=== PATIENT | female | born 1975 | race Caucasian/White ===

== ENCOUNTER → 2022-09-19 | Outpatient (CLI) | payer OTHER, SELFPAY ==
[2022-09-19 12:22] LABS: Absolute Lymphocyte Count 1.02 X10^3/uL (0.83-4.51); Absolute Neutrophil Count 5.1 X10^3/uL (2.0-7.7); Basophil# 0.07 X10^3/uL; Eosinophil# 0.14 X10^3/uL; Hematocrit 39.7 % (37-47); Hemoglobin 13.5 g/dL (12.0-15.0); Lymphocyte # 1.02 X10^3/ul (0.83-4.51); Lymphocyte % 14.9 % (19-41); Mean Corpuscular Hgb 30.5 pg (27.0-32.0); Mean Corpuscular Volume 89.8 fL (81-99); Mean Platelet Vol. 10.8 fl (6.2-12.0); Monocyte% 7.3 % (0-10); NRBC Flagged by Analyzer 0 % (0-5); Neutrophil % 74.5 % (47-70); Platelet Count 263 K/mm3 (150-450); RBC Distribution Width CV 12.5 % (11.6-14.6); RBC Distribution Width SD 41.4 fl (35.1-43.9); Red Blood Count 4.42 M/mm3 (4.2-5.4); White Blood Count 6.9 K/mm3 (4.4-11.0)
[2022-09-19 12:50] LABS: Vitamin D,25 Hydroxy 40.2 ng/mL
[2022-09-20 13:07] LABS: ANTINUCLEAR ANTIBODIES DIRECT Negative (Negative)
== END | disposition home or self-care (01) ==
PROVIDERS: PCP Internal Medicine; Referring Provider Internal Medicine; Visit Provider Internal Medicine
DX: I73.00 Raynaud's syndrome without gangrene (principal); E55.9 Vitamin D deficiency, unspecified
CPT/HCPCS: 36415; 82306; 85025; 86038; 86225; 86235

== ENCOUNTER → 2023-07-04 | Outpatient (CLI) | payer OTHER, SELFPAY ==
--- NOTE | 2023-07-04 09:13 | BI_ITS ---
MAMMOGRAPHY - BILATERAL SCREENING REASON FOR EXAM: Female, 48 years old. Routine annual screening examination. PERTINENT HISTORY: Non-contributory. TECHNIQUE: Digital bilateral breast daniel (3D mammographic acquisition) in the CC and MLO projections. 2-D mediolateral oblique (MLO) and craniocaudad (CC) views of both breasts were obtained. CAD: Full Field Digital Mammography with Computer Added Detection was performed. COMPARISON: Comparison is made with prior abdomen examination December 18, 2021. FINDINGS: Breast Composition: The breasts are extremely dense, which lowers the sensitivity of mammography. There is a 7.2 mm x 10.4 mm spiculated density in the right axilla as seen on the mediolateral oblique view. Correlation with ultrasound is recommended for further evaluation. No other significant abnormalities are identified. BI/SCRN MAMM (CAD)W/DANIEL BILAT IMPRESSION: 7.2 mm x 10.4 mm spiculated density in the right axilla as seen on the mediolateral oblique view. Correlation with ultrasound is recommended for further evaluation. ASSESSMENT CATEGORY: BIRADS Category 0: Incomplete. Need additional imaging evaluation. A letter regarding these results will be sent to the patient by the facility within 30 days. Approximately 10% of breast cancers are not detected by mammography. A normal mammogram should not delay biopsy of a clinically suspicious abnormality. [id number] Electronically Signed: Henok Sinha MD at 10:06 EST ,
--- OUTSIDE RECORDS SUMMARY | 2023-07-04 09:38 | XMS RPT_ITS | CCD ---
Author Name Unknown Address [address] [place] [address] Organization [facility] Care Team Providers Care Cocktail Server Name Role Phone Bernie Alcantara CNP Primary Care Provider BERNIE ALCANTARA Primary Care Unavailable GARCIA OWUSU Attending Unavailable BERNIE ALCANTARA Primary Care Unavailable AFSHAN FOX Attending Unavailable BERNIE ALCANTARA Primary Care Unavailable GALI CALHOUN Attending Unavailable BERNIE ALCANTARA Primary Care Unavailable Allergies Allergy Classification Reported Allergen(s) Allergy Type Date of Onset Reaction(s) Facility (10 sources) Penicillins; Translations: [PENICILLINS] Propensity to adverse reactions 01-29-2005 [facility] Work Phone: (10 sources) Seasonal allergy; Translations: [SEASONAL ALLERGIES] Propensity to adverse reactions 07-19-2009 [facility] Work Phone: Medications Current Medications Medication Drug Class(es) Dates Sig (Normalized) Sig (Original) nitrofurantoin, macrocrystals 25 mg / nitrofurantoin, monohydrate 75 mg oral capsule (1 source) Nitrofuran Antibacterial Start: 05-25-2022 End: 05-30-2022 take 1 capsule by mouth twice daily nitrofurantoin monohydrate and macrocrystal (MACROBID) 100 mg capsule Take 1 capsule by mouth twice daily for 5 days. 10 capsule 0 05/25/2022 05/30/2022 Active Completed/Discontinued Medications Medication Drug Class(es) Dates Sig (Normalized) Sig (Original) Desogestrel / Ethinyl Estradiol (1 source) Progestin, Estrogen Start: 08-07-2022 take 1 tablet by mouth once daily Desogestrel-Ethin yl Estradiol (KARIVA, 28,) 0.15-0.02 mgx21 /0.01 mg x 5 per tablet Take 1 tablet by mouth once daily. 28 tablet 12 08/07/2022 Active Problems Active Problems Problem Classification Problem Date Documented Da te Episodic/Chronic Genitourinary symptoms and ill-defined conditions (1 source) Dysuria; Translations: [Dysuria] Episodic Menopausal disorders (1 source) Perimenopausal state; Translations: [Menopausal and female climacteric states] Chronic Other female genital disorders (1 source) Vaginal irritation; Translations: [Other specified noninflammatory disorders of vagina] Episodic Other screening for suspected conditions (not mental disorders or infectious disease) (2 sources) Patient encounter status; Translations: [Encounter for screening mammogram for malignant neoplasm of breast] Episodic Residual codes; unclassified (1 source) Treatment not available; Translations: [Procedure and treatment not carried out for other reasons] Episodic Urinary tract infections (1 source) Acute cystitis; Translations: [Acute cystitis without hematuria] Episodic Past or Other Problems Problem Classification Problem Date Documented Da te Episodic/Chronic Other injuries and conditions due to external causes (9 sources) Angioedema; Translations: [Angioneurotic edema, initial encounter] Onset: 01-30-2005 01-30-2005 Episodic Results Test Name Value Interpretation Reference Range Facil ity Vital Signs Date Time Vital Sign Value Performing Clinician Ella rodriguez 07-18-2022 09:27-0500 Body weight 63.5 kg Garcia Owusu MD Work Phone: [facility] 07-18-2022 09:27-0500 Diastolic blood pressure 74 mm[Hg] Garcia Owusu MD Work Phone: [facility] 07-18-2022 09:27-0500 Systolic blood pressure 122 mm[Hg] Garcia Owusu MD Work Phone: [facility] 06-04-2022 09:37-0500 Body weight 64.86 kg Afshan Fox TOOLROOM CHECKER.JUSTUS Work Phone: [facility] 06-04-2022 09:37-0500 Diastolic blood pressure 80 mm[Hg] Afshan Fox TOOLROOM CHECKER.DRIVER TRAINEE Work Phone: [facility] 06-04-2022 09:37-0500 Heart rate 70 /min Afshan [place] TOOLROOM CHECKER.DRIVER TRAINEE Work Phone: [facility] 06-04-2022 09:37-0500 Respiratory rate 14 /min Afshan [place] TOOLROOM CHECKER.DRIVER TRAINEE Work Phone: [facility] 06-04-2022 09:37-0500 SaO2% (BldA) [Mass fraction] 98 % Afshan Dominique TOOLROOM CHECKER.DRIVER TRAINEE Work Phone: [facility] 06-04-2022 09:37-0500 Systolic blood pressure 104 mm[Hg] Afshan [place] TOOLROOM CHECKER.DRIVER TRAINEE Work Phone: [facility] Encounters Encounter Date Encounter Type Care Provider Facility Start: 03-14-2023 End: 03-14-2023 [facility] Facility:[facility] Start: 08-06-2022 Telephone encounter Garcia Owusu MD Work Phone: OB/Gynecology Procedures Date Procedure Procedure Detail Performing Clinician Start: 06-04-2022 Urnls dip stick/tabl et rgnt auto w/o microscopy Afshan Dominique TOOLROOM CHECKER.DRIVER TRAINEE Work Phone: Start: 02-22-2022 INFLUENZA VACCINE QUADRIVALENT 6 MO - 64 YRS IM Grant Kerr MD Work Phone: Start: 12-18-2021 SULEMAN SCREENING W DANEIL Re christine Owusu MD Work Phone: Start: 12-18-2021 Mammography Screen Wst r Plan of Treatment Date Care Activity Detail Author Start: 12-06-2031 Urine microalbumin profile DTAP,TDAP,TD (2 - Td or Tdap) [facility] Start: 12-05-2026 HPV TESTING HPV TESTING [facility] Start: 12-05-2026 PAP TESTING PAP TESTING [facility] Start: 12-18-2022 Mammography MAMMOGRAM [facility] Start: 05-13-2022 DEPRESSION ASSESSMENT DEPRESSION ASSESSMENT [facility] Start: 01-11-2022 Influenza vaccination INFLUENZA (#1) [facility] Start: 01-01-2022 DEPRESSION ASSESSMENT DEPRESSION ASSESSMENT [facility] Start: 2019 COLOGUARD (FIT-DNA) COLOGUARD (FIT-DNA) [facility] Start: 2019 Colonoscopy COLONOSCOPY [facility] Start: 2019 COLORECTAL CANCER SCREENING COLORECTAL CANCER SCREENING [facility] Start: [address] COLONOGRAPHY [facility] Start: 2019 DIABETES SCREEN DIABETES SCREEN [facility] Start: 2019 FECAL OCCULT BLOOD FECAL OCCULT BLOOD [facility] Start: 2019 LIPID SCREEN LIPID SCREEN [facility] Start: 2019 SIGMOIDOSCOPY SIGMOIDOSCOPY [facility] Start: 02-25-1992 HEPATITIS C SCREENING HEPATITIS C SCREENING [facility] Start: 1986 Adult depression screening assessment DEPRESSION SCREENING [facility] Start: 1974 COVID-19 VACCINE (#1) COVID-19 VACCINE (#1) [facility] Start: 1974 HEPATITIS B (1 of 3 - 3-dose series) HEPATITIS B (1 of 3 - 3-dose series) [facility] Bacteria identified in Urine by Culture URINE CULTURE Microbiology Routine Dysuria 06/04/2022 10:[address] [facility] Work Phone: BACTERIAL VAGINOSIS AMPLIFICATION BACTERIAL VAGINOSIS AMPLIFICATION Lab Routine Vaginal irritation 06/04/2022 10:[address] [facility] Work Phone: ALONSO / TRICHOMONA S AMPLIFICATION ALONSO / TRICHOMONAS AMPLIFICATION Microbiology Routine Vaginal irritation 06/04/2022 10:[address] [facility] Work Phone: [facility] Immunizations Immunization Date Immunization Notes Care Provider Mikaela solis 02-22-2022 influenza, injectabl e, quadrivalent, contains preservative Nurse Shaw [facility] 12-05-2021 tetanus toxoid, redu wilda diphtheria toxoid, and acellular pertussis vaccine, adsorbed Screen [facility] 03-11-2020 influenza, injectabl e, quadrivalent, contains preservative Screen [facility] Work Phone: 03-10-2019 influenza, injectabl e, quadrivalent, preservative free Screen [facility] 02-27-2018 influenza, injectabl e, quadrivalent, contains preservative Screen [facility] 03-01-2016 influenza, injectabl e, quadrivalent, contains preservative Screen [facility] Work Phone: 02-21-2015 influenza, injectabl e, quadrivalent, contains preservative Screen [facility] Work Phone: 03-05-2014 influenza, live, intranasal, quadrivalent Screen [facility] Work Phone: 03-06-2010 influenza virus vacc ine, unspecified formulation Screen [facility] Work Phone: Payers Date Payer Category Payer Unknown [id number] 2017 Unknown [id number] Social History Date Type Detail Facility Start: 06-18-2011 End: 07-18-2022 Tobacco smoking status NHIS Never smoked tobacco [facility] Start: 06-18-2011 End: 07-18-2022 Tobacco use and exposure Smokeless tobacco non-user [facility] Start: 12-05-2021 End: 07-18-2022 Alcohol intake Ex-drinker (finding) [facility] Start: 1975 Sex Assigned At Female [facility] Start: 11-25-2021 End: 02-07-2022 Exposure to SARS-CoV-2 (event) Not sure [facility] Start: 02-21-2022 History SDOH Alcohol Frequency 1 [facility] Start: 02-21-2022 History SDOH Alcohol Std Drinks 0 [facility] Start: 02-21-2022 History SDOH Social Connections Phone 5 [facility] Start: 02-21-2022 History SDOH Social Connections [employer] 3 [facility] Start: 02-21-2022 History SDOH Social Connections Meetings 2 [facility] Start: 02-21-2022 History SDOH Physica l Activity DPW 6 [facility] Clinical Notes 01-17-2010 to 03-14-2023 Telephone Encounter - Jennifer Fields AREA DEVELOPMENT CONSULTANT - 08/08/2022 9:30 AM EDTTelephone Encounter - Daiana Fernandez AREA DEVELOPMENT CONSULTANT - 08/07/2022 11:46 AM EDTTelephone Encounter - aBrb Monie RN - 08/06/2022 9:28 AM EDT Note Date & Type Note Facility 03-14-2023 Note HNO ID: [id number] Author: Reema Lyons APRN.DRIVER TRAINEE Service: ? Author Type: Nurse Practitioner Type: Progress Notes Filed: 03/14/2023 2:10 PM Note Text: CC: Patient presents with: Sinus Problem: Pressure in ears and Eyes, nasal congestion x1 week HPI: Vandana Hyman is a 48 year old female who presents to the office with complaint of head congestion, sinus symptoms, and ear symptoms for a week. Symptoms are worsening Associated symptoms includes nasal congestion and facial pain/pressure. Denies fever, nausea, vomiting , and diarrhea. Treatments tried include nothing so far. with no relief of symptoms. Sick contacts: unknown. History of asthma, frequent episodes of bronchitis, chronic bronchitis, bronchiectasis or COPD: No Smoker: No Seasonal/environmental allergies: No The ROS is otherwise negative. The patient's pmh, medications, allergies, and past visits are reviewed. PHYSICAL EXAM: LMP 07/03/2022 (Exact Date) General appearance: alert, cooperative, pleasant, in no acute distress Head: Normocephalic Eyes: EOM's intact, conjunctiva pink and moist, no icterus, sclera white, non-injected Ears: Right ear: External ear/canal- Normal, TM - clear with good landmarks. Left ear: External ear/canal- Normal, TM - clear with good landmarks Oropharynx:moist without lesions, No erythema, exudates or tonsillar hypertrophy. Heart: Negative. RRR without obvious murmur, gallop, or rubs. No ectopy. Lungs: clear to auscultation, without rales or wheeze, good air exchange PAST MEDICAL HISTORY Diagnosis Date Urinary tract infection, site not specified Recurrent UTI's PAST SURGICAL HISTORY Procedure Laterality Date DELIVERY ONLY PAST SURGICAL HISTORY OF WISDOM TEETH ALLERGIES Penicillins and Seasonal Allergies MEDICATIONS Desogestrel-Ethinyl Estradiol (KARIVA, 28,) 0.15-0.02 mgx21 /0.01 mg x 5 per tablet Take 1 tablet by mouth once daily. MULTIVITAMIN ORAL Take by mouth once daily. FAMILY HISTORY Problem Relation Age of Onset Arthritis Mother Asthma Mother Cancer Mother SKIN CACNER Thyroid Mother Stroke Mother Heart Mother triple bypass Heart Father Cancer Brother SKIN CANCER Hypertension Brother Diabetes Maternal Grandfather Stroke Maternal Grandfather Hypertension Paternal Grandmother Social History Tobacco Use Smoking status: Never Smokeless tobacco: Never Vaping Use Vaping Use: Never used Substance Use Topics Alcohol use: Not Currently Drug use: No ASSESSMENT/PLAN: 1. Rhinosinusitis - ICD9: 473.9, ICD10: J32.9 - DOXYCYCLINE HYCLATE 100 MG TABLET Prescription instructions reviewed with patient as applicable. Potential red flag symptoms discussed with the patient. Reviewed appropriate action plan to take if red flag symptoms occur. Patient agreeable to treatment plan. Reema Lyons APRN.[facility] 08-08-2022 Miscellaneous Notes Patient scheduled Message left asking pt to contact the office to review below message and further advise. Daiana Fernandez LPN Rx sent. Schedule f/u visit, can be 3-4 months to discuss how she is doing w/ these. Garcia Owusu MD Patient was seen in the office on 07/18/22 for perimenopausal symptoms. Patient states her appointment got off track and that she forgot to get a prescription for an OCP. Patient is wanting to be starting on a control pill. Patient is aware provider is out of the office and is willing to wait until provider returns to have addressed. Pharmacy is up to date. Will need to call patient back. Barb Lomax RN documented in this encounter [facility] 07-18-2022 Note HNO ID: [id number] Author: Garcia Owusu MD Service: ? Author Type: Physician Type: Progress Notes Filed: 07/18/2022 12:56 PM Note Text: Vandana Hyman is a 47 year old female who presents for problem visit for c/o vaginal dryness, brain fog. Menses are a little heavier. .Decresed libido. Gained wt. Concerned about perimenopause and what to expect. Tried ocps short term in the past and felt very newberry/angry on it. Gets some dull aches first half of her menstrual cycle. Menses are regular and light during the day and then flows out heavier when sits down on toilet. Menses in the past was 6-7 days and now 3 days. Hasn't missed any. Sometimes mood around menses but not each cycle. Eats health, exercises regularly. Takes 2 melatonin before bed, sometimes sleeps better than others. OB History T1 L1 SAB0 IAB0 Ectopic0 Multiple0 Live Births1 [employer] History LMP: 05/13/2022 (Exact Date), Having periods Age at Menarche: Age at First : Age at Menopause: [employer] History Comments: Sexual Activity: Yes; Male Contraception: No contraception data on record PAST MEDICAL HISTORY Diagnosis Date Urinary tract infection, site not specified Recurrent UTI's PAST SURGICAL HISTORY Procedure Laterality Date DELIVERY ONLY PAST SURGICAL HISTORY OF WISDOM TEETH FAMILY HISTORY Problem Relation Age of Onset Arthritis Mother Asthma Mother Cancer Mother SKIN CACNER Thyroid Mother Stroke Mother Heart Mother triple bypass Heart Father Cancer Brother SKIN CANCER Hypertension Brother Diabetes Maternal Grandfather Stroke Maternal Grandfather Hypertension Paternal Grandmother Social History Tobacco Use Smoking status: Never Smokeless tobacco: Never Vaping Use Vaping Use: Never used Substance Use Topics Alcohol use: Not Currently Drug use: No Current Outpatient Medications Medication Sig MULTIVITAMIN ORAL Take by mouth once daily. No current facility-administered medications for this visit. Allergies As of Date: 07/18/2022 Allergen Noted Reaction PENICILLINS 01/29/2005 SEASONAL ALLERGIES 07/19/2009 Fully Assessed 07/18/2022 REVIEW OF SYSTEMS Abdomen: No bloating, early satiety, indigestion, or increased flatulence. No abdominal pain, nausea, vomiting, diarrhea, or constipation. Bladder: No dysuria, gross hematuria, urinary frequency, urinary urgency, or incontinence. Allergies and current medication updated:Yes EXAM: LMP 05/13/2022 GENERAL: pleasant, female in no apparent distress ASSESSMENT AND PLAN: perimenopause Discussion today about perimenopause, expectations around perimenopause. No significant menstrual disruptions. Some vaginal dryness and irritation. We discussed options for that. [id number] suggestions given. Discussed with her option of continuous OCPs, vaginal ring or patch. However, side effects of that may be worse than the symptoms she is currently experiencing. Encouraged her to continue with healthy lifestyle. Reviewed her cholesterol and thyroid labs that she brought with her today. These are scanned in. Discussed with her normal changes in sexual function as well. Patient had questions about whether she has any endometriosis or fibroids. Questions were answered to the best of my ability. Does occasionally have some discomfort. If this continues or worsens can consider pelvic ultrasound I discussed with her that clinically there is a minimal chance of finding anything that we would need to intervene with at this point since she is not having severe pain or problems with her periods. Contact office if hot flashes or menstrual irregularities or other concerns worsen. Patient is comfortable with this plan. I spent a total of 23 minutes on the date of the service which included preparing to see the patient, completing clinical documentation, counseling and educating the patient/family/caregiver, and independently interpreting results (not separately reported) Medical Decision Making: Medical Decision Making Level: 1 - N/A Garcia Owusu MD [facility] 07-18-2022 History of Presen t illness Narrative Vandana Hyman is a 47 year old female who presents for problem visit for c/o vaginal dryness, brain fog. Menses are a little heavier. .Decresed libido. Gained wt. Concerned about perimenopause and what to expect. Tried ocps short term in the past and felt very newberry/angry on it. Gets some dull aches first half of her menstrual cycle. Menses are regular and light during the day and then flows out heavier when sits down on toilet. Menses in the past was 6-7 days and now 3 days. Hasn't missed any. Sometimes mood around menses but not each cycle. Eats health, exercises regularly. Takes 2 melatonin before bed, sometimes sleeps better than others. OB History T1 L1 SAB0 IAB0 Ectopic0 Multiple0 Live Births1 [employer] History LMP: 05/13/2022 (Exact Date), Having periods Age at Menarche: Age at First : Age at Menopause: [employer] History Comments: Sexual Activity: Yes; Male Contraception: No contraception data on record PAST MEDICAL HISTORY Diagnosis Date Urinary tract infection, site not specified Recurrent UTI's PAST SURGICAL HISTORY Procedure Laterality Date DELIVERY ONLY PAST SURGICAL HISTORY OF WISDOM TEETH FAMILY HISTORY Problem Relation Age of Onset Arthritis Mother Asthma Mother Cancer Mother SKIN CACNER Thyroid Mother Stroke Mother Heart Mother triple bypass Heart Father Cancer Brother SKIN CANCER Hypertension Brother Diabetes Maternal Grandfather Stroke Maternal Grandfather Hypertension Paternal Grandmother Social History Tobacco Use Smoking status: Never Smokeless tobacco: Never Vaping Use Vaping Use: Never used Substance Use Topics Alcohol use: Not Currently Drug use: No Current Outpatient Medications Medication Sig MULTIVITAMIN ORAL Take by mouth once daily. No current facility-administered medications for this visit. Allergies As of Date: 07/18/2022 Allergen Noted Reaction PENICILLINS 01/29/2005 SEASONAL ALLERGIES 07/19/2009 Fully Assessed 07/18/2022 REVIEW OF SYSTEMS Abdomen: No bloating, early satiety, indigestion, or increased flatulence. No abdominal pain, nausea, vomiting, diarrhea, or constipation. Bladder: No dysuria, gross hematuria, urinary frequency, urinary urgency, or incontinence. Allergies and current medication updated:Yes EXAM: LMP 05/13/2022 GENERAL: pleasant, female in no apparent distress ASSESSMENT AND PLAN: perimenopause Discussion today about perimenopause, expectations around perimenopause. No significant menstrual disruptions. Some vaginal dryness and irritation. We discussed options for that. Uyhp-pno-[id number] suggestions given. Discussed with her option of continuous OCPs, vaginal ring or patch. However, side effects of that may be worse than the symptoms she is currently experiencing. Encouraged her to continue with healthy lifestyle. Reviewed her cholesterol and thyroid labs that she brought with her today. These are scanned in. Discussed with her normal changes in sexual function as well. Patient had questions about whether she has any endometriosis or fibroids. Questions were answered to the best of my ability. Does occasionally have some discomfort. If this continues or worsens can consider pelvic ultrasound I discussed with her that clinically there is a minimal chance of finding anything that we would need to intervene with at this point since she is not having severe pain or problems with her periods. Contact office if hot flashes or menstrual irregularities or other concerns worsen. Patient is comfortable with this plan. I spent a total of 23 minutes on the date of the service which included preparing to see the patient, completing clinical documentation, counseling and educating the patient/family/caregiver, and independently interpreting results (not separately reported) Medical Decision Making: Medical Decision Making Level: 1 - N/A Garcia Owusu MD documented in this encounter [facility] 07-03-2022 Miscellaneous Notes schedule in person or virtual to discuss symptoms. Thanks. Garcia Owusu MD documented in this encounter [facility] 06-04-2022 Note HNO ID: [id number] Author: Afshan Fox APRN.DRIVER TRAINEE Service: ? Author Type: Nurse Practitioner Type: Progress Notes Filed: 06/04/2022 10:23 AM Note Text: Telex Operator offered: Patient declines. Vandana Hyman is a 47 year old female who presents for vaginal pruritis and burning for 1 week(s). Vaginal discharge: none. Itching: YES Dyspareunia: YES Fever/chills: No Abdominal pain: No Bladder: frequency, urgency Bowel: No blood in stool, pain with BM, tarry stool, persistent diarrhea or constipation Any new sexual partners or concern for STD exposure: No Are you currently taking any medications to treat vaginitis: Yes, 1 day Monistat Do you use feminine sprays, douches or deodorants: No Past medical, surgical, social history, medications and allergies reviewed and updated. OBJECTIVE: BP 104/80 Pulse 70 Resp 14 Wt 143 lb (64.9kg) SpO2 98% LMP 05/13/2022 GENERAL: Well developed, well nourished in no apparent distress PELVIC: external genitalia normal, normal Bartholin's glands, urethra, [place]'s glands, no vulvar lesions, no cervical lesions, good vaginal support, physiologic discharge present, normal appearing perineal body and perianal region ASSESSMENT/PLAN: 1. Vaginal irritation - ICD9: 623.9, ICD10: N89.8 (primary diagnosis) - ALONSO / TRICHOMONAS AMPLIFICATION - BACTERIAL VAGINOSIS AMPLIFICATION 2. Dysuria - ICD9: 788.1, ICD10: R30.0 acute - UA negative - Send urine for culture - Patient education for prevention given - URINE CULTURE Afshan Fox APRN.CNP Medical Decision Making: Problems: Moderate: New problem with uncertain prognosis Data: Unique test(s) ordered: 3+ Risk: Low: Low risk from testing/treatment Medical Decision Making Level: 4 - Moderate [facility] 06-04-2022 History of Presen t illness Narrative Telex Operator offered: Patient declines. Vandana Hyman is a 47 year old female who presents for vaginal pruritis and burning for 1 week(s). Vaginal discharge: none. Itching: YES Dyspareunia: YES Fever/chills: No Abdominal pain: No Bladder: frequency, urgency Bowel: No blood in stool, pain with BM, tarry stool, persistent diarrhea or constipation Any new sexual partners or concern for STD exposure: No Are you currently taking any medications to treat vaginitis: Yes, 1 day Monistat Do you use feminine sprays, douches or deodorants: No Past medical, surgical, social history, medications and allergies reviewed and updated. OBJECTIVE: BP 104/80 Pulse 70 Resp 14 Wt 143 lb (64.9kg) SpO2 98% LMP 05/13/2022 GENERAL: Well developed, well nourished in no apparent distress PELVIC: external genitalia normal, normal [place]tholin's glands, urethra, [place]'s glands, no vulvar lesions, no cervical lesions, good vaginal support, physiologic discharge present, normal appearing perineal body and perianal region ASSESSMENT/PLAN: 1. Vaginal irritation - ICD9: 623.9, ICD10: N89.8 (primary diagnosis) - ALONSO / TRICHOMONAS AMPLIFICATION - BACTERIAL VAGINOSIS AMPLIFICATION 2. Dysuria - ICD9: 788.1, ICD10: R30.0 acute - UA negative - Send urine for culture - Patient education for prevention given - URINE CULTURE Afshan Fox APRN.CNP Medical Decision Making: Problems: Moderate: New problem with uncertain prognosis Data: Unique test(s) ordered: 3+ Risk: Low: Low risk from testing/treatment Medical Decision Making Level: 4 - Moderate documented in this encounter [facility] 05-25-2022 Note HNO ID: [id number] Author: Gali Calhoun APRN.DRIVER TRAINEE Service: ? Author Type: Nurse Practitioner Type: Progress Notes Filed: 05/25/2022 9:19 AM Note Text: Telemedicine Visit - Distance Health Virtual Visit Note Patient seen on [employer] platform. Location of patient: [place] History of Present Illness Vandana Hyman is a 47 year old female with a history of UTI symptoms for 4 days. Urinary symptoms ROS: Positive for Dysuria, Increase in frequency of urination, and Urgency, Negative for Fevers, Vomiting, Diarrhea, Abdominal pain , Back/Flank pain, and Blood in urine; pt thinks she may have seen pink in urine stream yesterday. Denies any bright red blood visible in urine. Chance of : No Any self-treatment attempted: Yes Number of previous UTI's in last 6 months:0 Number of previous UTI's in last 12 months: 0 Aggravating Factors: Voiding Alleviating Factors include AZO and Increasing fluids with minimal relief in symptoms. Pt took AZO OTC urine test and was positive for leukocytes and nitrites. PAST MEDICAL HISTORY Diagnosis Date Urinary tract infection, site not specified Recurrent UTI's PAST SURGICAL HISTORY Procedure Laterality Date DELIVERY ONLY PAST SURGICAL HISTORY OF WISDOM TEETH FAMILY HISTORY Problem Relation Age of Onset Arthritis Mother Asthma Mother Cancer Mother SKIN CACNER Thyroid Mother Stroke Mother Heart Mother triple bypass Cancer Brother SKIN CANCER Hypertension Brother Diabetes Maternal Grandfather Stroke Maternal Grandfather Hypertension Paternal Grandmother Social History Tobacco Use Smoking status: Never Smokeless tobacco: Never Vaping Use Vaping Use: Never used Substance Use Topics Alcohol use: Not Currently Drug use: No ALLERGIES Allergen Reactions Penicillins Seasonal Allergies Current Outpatient Medications Medication Sig MULTIVITAMIN ORAL Take by mouth. No current facility-administered medications for this visit. Video Exam (Examination performed via Video enabled technology) General Appearance: 47 year old yo female in NAD; not ill or toxic appearing Abdomen: non-tender by self palpation CVA Tenderness: non-tender bilaterally by self palpation ASSESSMENT/PLAN: 1. Acute cystitis without hematuria - ICD9: 595.0, ICD10: N30.00 - Begin empiric treatment with Macrobid as prescribed and discussed - Recommend increased oral intake of clear liquids - Advised on wipe [id number]-cc-tqma and always void after intercourse - Advised to seek immediate medical evaluation if any bright red blood filling toilet bowl, fevers, severe pain - Follow up with PCP (or available in-person care) in 3-5 days if no improvement - Red flags discussed for in person care and follow up - All questions answered Gali Calhoun APRN.CNP If you let us know who your primary care provider is, we will send them a notification of today?s visit through our electronic medical records system. Since not all providers have access to our notifications, we strongly encourage you to share the following record of today?s visit with your primary care provider at your next visit. This will help in providing you the best care. If you do not have an established Primary Care physician and would like to continue care with a [facility] Virtual Primary Care physician, please ask your provider to place a Establish Primary Care order. Use [employer] to manage your care, wherever you are, 03/12, on your mobile device or computer. [employer] connects you to [employer] so you can access all your health information in one place and also schedule and request virtual appointments with primary care providers. [facility] 05-25-2022 Note HNO ID: [id number] Author: Gali Calhoun APRN.CNP Service: ? Author Type: Nurse Practitioner Type: Progress Notes Filed: 05/25/2022 7:37 AM Note Text: This is an Express Care eVisit note for Vandana Laneisit/Questionnaire reviewed The chief complaint for the visit - Patient presents with: Urinary Problem Recommendations/Treatment plan - See My Chart Message to patient Gali Calhoun APRN.CNP Total time spent on e-Visit: 3 minutes [facility] 05-25-2022 Instructions Gali Calhoun APRN.CNP - 05/25/2022 8:54 AM EST Images from the original note were not included. Urinary Problem-When to Seek Help? Symptoms of a urinary problem may lead to a bladder infection. Women are at greater risk of a urinary tract infection than are men. Most urinary tract infections in women are caused by bacteria and involve the lower urinary tract including the bladder and urethra. Symptoms: Pain or burning when passing urine, urgency, frequency, blood in the urine, difficult emptying your bladder, and lower abdominal fullness or pressure. Common Causes: Sexual intercourse, menopause, constipation, uncontrolled diabetes, dehydration and feminine products such as tampons, and kidney stones. When to Get Help: Seek medical attention if you get frequent bladder infections, urinary concerns such as leakage, blood in the urine or frequent need to urinate. You may be recommended to get help from a specialist, such as a urologist. Diagnosis & Treatment: Lab testing may include: urinalysis, and urine culture that can be collected in the lab or walk-in clinic. Most bladder infections can easily be treated. A physician, nurse practitioner or physician trading assistant may treat with a short course of an antibiotic. Delaying treatment can lead to worsening symptoms, like a kidney infection. Self-Care: Avoid a full bladder, bubble baths, bath oils, food and beverages that may irritate the bladder such as caffeine. Avoid spermicide foam and diaphragms Void before and after sexual intercourse Wipe front to back after using the bathroom. Stay hydrated Stop Smoking Follow-up Care: Follow up testing is not needed in healthy young women if symptoms resolve. documented in this encounter [facility] 05-25-2022 History of Presen t illness Narrative Telemedicine Visit - Distance Health Virtual Visit Note Patient seen on [employer] platform. Location of patient: [place] History of Present Illness Vandana Hyman is a 47 year old female with a history of UTI symptoms for 4 days. Urinary symptoms ROS: Positive for Dysuria, Increase in frequency of urination, and Urgency, Negative for Fevers, Vomiting, Diarrhea, Abdominal pain , Back/Flank pain, and Blood in urine; pt thinks she may have seen pink in urine stream yesterday. Denies any bright red blood visible in urine. Chance of : No Any self-treatment attempted: Yes Number of previous UTI's in last 6 months:0 Number of previous UTI's in last 12 months: 0 Aggravating Factors: Voiding Alleviating Factors include AZO and Increasing fluids with minimal relief in symptoms. Pt took AZO OTC urine test and was positive for leukocytes and nitrites. PAST MEDICAL HISTORY Diagnosis Date Urinary tract infection, site not specified Recurrent UTI's PAST SURGICAL HISTORY Procedure Laterality Date DELIVERY ONLY PAST SURGICAL HISTORY OF WISDOM TEETH FAMILY HISTORY Problem Relation Age of Onset Arthritis Mother Asthma Mother Cancer Mother SKIN CACNER Thyroid Mother Stroke Mother Heart Mother triple bypass Cancer Brother SKIN CANCER Hypertension Brother Diabetes Maternal Grandfather Stroke Maternal Grandfather Hypertension Paternal Grandmother Social History Tobacco Use Smoking status: Never Smokeless tobacco: Never Vaping Use Vaping Use: Never used Substance Use Topics Alcohol use: Not Currently Drug use: No ALLERGIES Allergen Reactions Penicillins Seasonal Allergies Current Outpatient Medications Medication Sig MULTIVITAMIN ORAL Take by mouth. No current facility-administered medications for this visit. Video Exam (Examination performed via Video enabled technology) General Appearance: 47 year old yo female in NAD; not ill or toxic appearing Abdomen: non-tender by self palpation CVA Tenderness: non-tender bilaterally by self palpation ASSESSMENT/PLAN: 1. Acute cystitis without hematuria - ICD9: 595.0, ICD10: N30.00 - Begin empiric treatment with Macrobid as prescribed and discussed - Recommend increased oral intake of clear liquids - Advised on wipe yrdez-tv-tfru and always void after intercourse - Advised to seek immediate medical evaluation if any bright red blood filling toilet bowl, fevers, severe pain - Follow up with PCP (or available in-person care) in 3-5 days if no improvement - Red flags discussed for in person care and follow up - All questions answered Gali Calhoun APRN.JUSTUS If you let us know who your primary care provider is, we will send them a notification of today s visit through our electronic medical records system. Since not all providers have access to our notifications, we strongly encourage you to share the following record of today s visit with your primary care provider at your next visit. This will help in providing you the best care. If you do not have an established Primary Care physician and would like to continue care with a [facility] Virtual Primary Care physician, please ask your provider to place a Establish Primary Care order. Use [employer] to manage your care, wherever you are, 03/12, on your mobile device or computer. [employer] connects you to [employer] so you can access all your health information in one place and also schedule and request virtual appointments with primary care providers. documented in this encounter [facility] 05-25-2022 History of Presen t illness Narrative This is an Express Care eVisit note for Vandana Richard Prakash eVisit/Questionnaire reviewed The chief complaint for the visit - Patient presents with: Urinary Problem Recommendations/Treatment plan - See My Chart Message to patient Gali Calhoun APRN.CNP Total time spent on e-Visit: 3 minutes documented in this encounter [facility] 12-18-2021 Miscellaneous Notes December 18, 2021 PID: [id number] Vandana Stephenson Prakash [address] [place] [address] Dear Ms. Hyman, We are pleased to inform you that the results of your recent breast imaging exam on 12/18/2021 are normal. Your mammogram demonstrates that you have dense breast tissue, which could hide abnormalities. Dense breast tissue, in and of itself, is a relatively common condition. Therefore, this information is not provided to cause undue concern; rather, it is to raise your awareness and promote discussion with your health care provider regarding the presence of dense breast tissue in addition to other risk factors. Early detection of cancer is very important. We also understand recommendations regarding breast cancer screening are controversial. Please discuss with your primary care provider which strategy is best for you and whether a mammogram is right for you. Your imaging studies and report will be kept on file at [facility] as part of your permanent medical record and are available for your continuing care. Thank you for allowing us to help in meeting your health care needs. Sincerely, Dr. Hamilton Interpreting Radiologist [facility] (Normal over 40) documented in this encounter [facility] documented as of this encounter (statuses as of 12/19/2021) [facility] History of Past illness Narrative* Problem Noted Date Resolved Date ADVANCED MATERNAL AGE:MULTIPARA [659.63] 010 06/18/2011 Supervision of normal first 07/26/2009 06/18/2011 documented as of this encounter (statuses as of 12/20/2021) [facility] History of Past illness Narrative* Problem Noted Date Resolved Date ADVANCED MATERNAL AGE:MULTIPARA [659.63] 010 06/18/2011 Supervision of normal first 07/26/2009 06/18/2011 documented as of this encounter (statuses as of 02/22/2022) [address]07-2010 History of Past illness Narrative* Problem Noted Date Resolved Date ADVANCED MATERNAL AGE:MULTIPARA [659.63] 010 06/18/2011 Supervision of normal first 07/26/2009 06/18/2011 documented as of this encounter (statuses as of 05/25/2022) [address]07-2010 History of Past illness Narrative* Problem Noted Date Resolved Date ADVANCED MATERNAL AGE:MULTIPARA [659.63] 010 06/18/2011 Supervision of normal first 07/26/2009 06/18/2011 documented as of this encounter (statuses as of 05/25/2022) [address]07-2010 History of Past illness Narrative* Problem Noted Date Resolved Date ADVANCED MATERNAL AGE:MULTIPARA [659.63] 010 06/18/2011 Supervision of normal first 07/26/2009 06/18/2011 documented as of this encounter (statuses as of 06/04/2022) [address]07-2010 History of Past illness Narrative* Problem Noted Date Resolved Date ADVANCED MATERNAL AGE:MULTIPARA [659.63] 010 06/18/2011 Supervision of normal first 07/26/2009 06/18/2011 documented as of this encounter (statuses as of 07/03/2022) [address]-2010 History of Past illness Narrative* Problem Noted Date Resolved Date ADVANCED MATERNAL AGE:MULTIPARA [659.63] 010 06/18/2011 Supervision of normal first 07/26/2009 06/18/2011 documented as of this encounter (statuses as of 07/18/2022) [address]-2010 History of Past illness Narrative* Problem Noted Date Resolved Date ADVANCED MATERNAL AGE:MULTIPARA [659.63] 010 06/18/2011 Supervision of normal first 07/26/2009 06/18/2011 documented as of this encounter (statuses as of 08/08/2022) [facility] note* Diagnosis Encounter for gynecological examination (general) (routine) without abnormal findings Encounter for screening mammogram for breast cancer documented in this encounter [facility] note* Diagnosis Encounter for immunization- Primary Need for other specified prophylactic vaccination against single bacterial disease documented in this encounter [facility] note* Diagnosis Treatment not available- Primary Procedure not carried out for other reasons documented in this encounter [facility] note* Diagnosis Acute cystitis without hematuria- Primary Acute cystitis documented in this encounter [facility] note* Diagnosis Vaginal irritation- Primary Unspecified noninflammatory disorder of vagina Dysuria documented in this encounter [facility] note* Diagnosis Perimenopausal- Primary Symptomatic menopausal or female climacteric states documented in this encounter [facility] for referral (narrative)* Diagnostic Procedure Only (Routine) - Closed Specialty Diagnoses / Procedures Referred By Isaak young Referred To Contact [facility] Diagnoses Encounter for gynecological examination (general) (routine) without abnormal findings Encounter for screening mammogram for breast cancer Procedures SULEMAN SCREENING W DANIEL SCREENING DIGITAL BREAST TOMOSYNTHESIS BI SCREENING MAMMOGRAPHY BI 2-VIEW BREAST INC Garcia Dotson MD [address] [place] [address] [place] [address] Referral ID Status Reason Start Date Expiration Date V isits Requested Visits Authorized [id number] Closed Auto-Generate d Referral 12/18/2021 05/12/2022 1 1 [facility] for visit Narrative* Diagnostic Procedure Only (Routine) - Closed Specialty Diagnoses / Procedures Referred By Isaak young Referred To Contact [facility] Diagnoses Encounter for gynecological examination (general) (routine) without abnormal findings Encounter for screening mammogram for breast cancer Procedures SULEMAN SCREENING W DANIEL SCREENING DIGITAL BREAST TOMOSYNTHESIS BI SCREENING MAMMOGRAPHY BI 2-VIEW BREAST INC Garcia Dotson MD [address] [place] [address] Br [employer] [address] [address] Referral ID Status Reason Start Date Expiration Date V isits Requested Visits Authorized [id number] Closed Auto-Generate d Referral 12/18/2021 05/12/2022 1 1 [facility] Summary Purpose Family History No Family History Records Found Advance Directives No Advanced Directives Records Found Additional Source Comments Source Comments (unrecognize d section and content) In the event this informatio n is protected by the Federal Confidentiality of Alcohol and Drug Abuse Patient Records regulations: The Federal rules restrict any use of the information to criminally investigate or prosecute any alcohol or drug abuse patient.[facility] the event this information is protected by the Federal Confidentiality of Alcohol and Drug Abuse Patient Records regulations: The Federal rules restrict any use of the information to criminally investigate or prosecute any alcohol or drug abuse patient.[facility] the event this information is protected by the Federal Confidentiality of Alcohol and Drug Abuse Patient Records regulations: The Federal rules restrict any use of the information to criminally investigate or prosecute any alcohol or drug abuse patient.[facility] the event this information is protected by the Federal Confidentiality of Alcohol and Drug Abuse Patient Records regulations: The Federal rules restrict any use of the information to criminally investigate or prosecute any alcohol or drug abuse patient.[facility] the event this information is protected by the Federal Confidentiality of Alcohol and Drug Abuse Patient Records regulations: The Federal rules restrict any use of the information to criminally investigate or prosecute any alcohol or drug abuse patient.[facility] the event this information is protected by the Federal Confidentiality of Alcohol and Drug Abuse Patient Records regulations: The Federal rules restrict any use of the information to criminally investigate or prosecute any alcohol or drug abuse patient.[facility] the event this information is protected by the Federal Confidentiality of Alcohol and Drug Abuse Patient Records regulations: The Federal rules restrict any use of the information to criminally investigate or prosecute any alcohol or drug abuse patient.[facility] the event this information is protected by the Federal Confidentiality of Alcohol and Drug Abuse Patient Records regulations: The Federal rules restrict any use of the information to criminally investigate or prosecute any alcohol or drug abuse patient.[facility] the event this information is protected by the Federal Confidentiality of Alcohol and Drug Abuse Patient Records regulations: The Federal rules restrict any use of the information to criminally investigate or prosecute any alcohol or drug abuse patient.[facility] Care Teams (unrecognized sec tion and content) Cocktail Server Relationship Specialty Start Date End Date Bernie Alcantara, DRIVER TRAINEE [address] [facility] [address] [address] [place] [address] PCP - General Internal Medicine 04/05/17 Cocktail Server Relationship Specialty Start Date End Date Bernie Alcantara, DRIVER TRAINEE [address] [facility] [facility] [address] [place] [address] PCP - General Internal Medicine 04/05/17 Cocktail Server Relationship Specialty Start Date End Date Bernie Alcantara, DRIVER TRAINEE [address] [facility] [address] [place] [address] PCP - General Internal Medicine 04/05/17 Cocktail Server Relationship Specialty Start Date End Date Bernie Alcantara, DRIVER TRAINEE [address] [facility] [address] [place] [address] PCP - General Internal Medicine 04/05/17 Cocktail Server Relationship Specialty Start Date End Date Bernie Alcantara, DRIVER TRAINEE [address] [facility] [address] [place] [address] PCP - General Internal Medicine 04/05/17 Cocktail Server Relationship Specialty Start Date End Date Bernie Alcantara, DRIVER TRAINEE [address] [facility] [address] [place] [address] PCP - General Internal Medicine 04/05/17 Cocktail Server Relationship Specialty Start Date End Date Bernie Alcantara, DRIVER TRAINEE [address] [facility] [address] [place] [address] PCP - General Internal Medicine 04/05/17 Cocktail Server Relationship Specialty Start Date End Date Bernie Alcantara, DRIVER TRAINEE [address] [facility] [address] [place] [address] PCP - General Internal Medicine 04/05/17 Reason for Visit (unrecogniz ed section and content) Reason Comments Vaginal Problem Specialty Diagnoses / Procedures Referred By Contac t Referred To Contact Gynecology / TIE IN MACHINE OPERATOR Diagnoses Vaginal infection vag Infection Procedures OFFICE/OUTPATIENT ESTABLISHED HIGH MDM 40-54 MIN EST WHI PATIENT Self Afshan Fox APRN.DRIVER TRAINEE [address] [place] [address] Referral ID Status Reason Start Date Expiration Date Visits Re quested Visits Authorized [id number] Closed 06/04/2022 05/12/2023 1 1 Reason Comments Discussion Specialty Diagnoses / Procedures Referred By Contac t Referred To Contact TIE IN MACHINE OPERATOR Diagnoses Encounter for gynecological examination pre menopause Procedures OFFICE/OUTPATIENT ESTABLISHED HIGH MDM 40-54 MIN EST WHI PATIENT Self Garcia Owusu MD [address] [place] [address] Referral ID Status Reason Start Date Expiration Date Visits Re quested Visits Authorized [id number] Closed 07/18/2022 05/12/2023 1 1 Reason Comments Medication Request INFORMATION SOURCE (unrecogn ized section and content) FOR RECORDS PERTAINING TO PATIENTS WHO ARE OR HAVE BEEN ENROLLED IN A CHEMICAL DEPENDENCY/SUBSTANCEABUSE PROGRAM, SOME INFORMATION MAY BE OMITTED. This clinical summary was aggregated from multiple sources. Caution should be exercised in using it in the provision of clinical care. This summary normalizes information from multiple sources, and as a consequence, information in this document may materially change the coding, format and clinical context of patient data. In addition, data may be omitted in some cases. CLINICAL DECISIONS SHOULD BE BASED ON THE PRIMARY CLINICAL RECORDS. [facility]. provides no warranty or guarantee of the accuracy or completeness of information in this document.
== END | disposition home or self-care (01) ==
LOC: OPBI 09:13
PROVIDERS: PCP Internal Medicine; Referring Provider Obstetrics & Gynecology; Visit Provider Obstetrics & Gynecology
DX: Z12.31 Encounter for screening mammogram for malignant neoplasm of breast (principal)
CPT/HCPCS: 77063; 77067

== ENCOUNTER → 2023-07-08 | Outpatient (CLI) | payer OTHER, SELFPAY ==
--- NOTE | 2023-07-08 09:17 | US_ITS ---
STUDY: ULTRASOUND BREAST - LEFT REASON FOR EXAM: Female, 48 years old. Abnormal screening mammogram. TECHNIQUE: Axial and longitudinal images of the LEFT breast were performed with a high resolution ultrasound transducer. # OF IMAGES: 49 COMPARISON: Comparison is made with prior mammogram dated July 04, 2023. FINDINGS: LEFT Breast: The left axilla was examined with ultrasound. There are several small benign-appearing axillary lymph nodes. US/Breast Limited Unilateral IMPRESSION: Several small benign-appearing axillary lymph nodes. Routine mammographic follow-up recommended. ASSESSMENT CATEGORY: BIRADS Category 2: Benign. A letter regarding these results will be sent to the patient by the facility within 30 days. Electronically Signed: Henok Sinha MD at 10:56 EST ,
--- OUTSIDE RECORDS SUMMARY | 2023-07-08 09:49 | XMS RPT_ITS | CCD ---
Author Name Unknown Address [address] [place] [address] Organization [facility] Care Team Providers Care Pathology Technologist Name Role Phone Bernie Alcantara CNP Primary Care Provider BERNIE ALCANTARA Primary Care Unavailable GARCIA OWUSU Attending Unavailable BERNIE ALCANTARA Primary Care Unavailable AFSHAN FOX Attending Unavailable BERNIE ALCANTARA Primary Care Unavailable GALI CALHOUN Attending Unavailable BERNIE ALCANTARA Primary Care Unavailable Allergies Allergy Classification Reported Allergen(s) Allergy Type Date of Onset Reaction(s) Facility (10 sources) Penicillins; Translations: [PENICILLINS] Propensity to adverse reactions 01-29-2005 [facility] Work Phone: (10 sources) Seasonal allergy; Translations: [SEASONAL ALLERGIES] Propensity to adverse reactions 07-19-2009 [facility] Work Phone: Medications Current Medications Medication [...] 63.5 kg Garcia Owusu MD Work Phone: [facility] 07-18-2022 09:27-0500 Diastolic blood pressure 74 mm[Hg] Garcia Owusu MD Work Phone: [facility] 07-18-2022 09:27-0500 Systolic blood pressure 122 mm[Hg] Garcia Owusu MD Work Phone: [facility] 06-04-2022 09:37-0500 Body weight 64.86 kg Afshan Fox SOCIETY EDITOR.JUSTUS Work Phone: [facility] 06-04-2022 09:37-0500 Diastolic blood pressure 80 mm[Hg] Afshan Fox SOCIETY EDITOR.COMMERCIAL KITCHEN SERVICE TECHNICIAN Work Phone: [facility] 06-04-2022 09:37-0500 Heart rate 70 /min Afshan [facility] SOCIETY EDITOR.COMMERCIAL KITCHEN SERVICE TECHNICIAN Work Phone: [facility] 06-04-2022 09:37-0500 Respiratory rate 14 /min Afshan [facility] SOCIETY EDITOR.COMMERCIAL KITCHEN SERVICE TECHNICIAN Work Phone: [facility] 06-04-2022 09:37-0500 SaO2% (BldA) [Mass fraction] 98 % Afshan Dominique SOCIETY EDITOR.COMMERCIAL KITCHEN SERVICE TECHNICIAN Work Phone: [facility] 06-04-2022 09:37-0500 Systolic blood pressure 104 mm[Hg] Afshan [facility] SOCIETY EDITOR.COMMERCIAL KITCHEN SERVICE TECHNICIAN Work Phone: [facility] Encounters Encounter Date Encounter Type Care Provider Facility Start: 03-14-2023 End: 03-14-2023 [facility] Facility:[facility] Start: 08-06-2022 Telephone encounter Garcia Owusu MD Work Phone: OB/Gynecology Procedures Date Procedure Procedure Detail Performing Clinician Start: 06-04-2022 Urnls dip stick/tabl et rgnt auto w/o microscopy Afshan Dominique SOCIETY EDITOR.COMMERCIAL KITCHEN SERVICE TECHNICIAN Work Phone: Start: 02-22-2022 INFLUENZA VACCINE QUADRIVALENT 6 MO - 64 YRS IM Grant Kerr MD Work Phone: Start: 12-18-2021 SULEMAN SCREENING W DANIEL Re crhistine Owusu MD Work Phone: Start: 12-18-2021 Mammography Screen Wst r Plan of Treatment Date Care Activity Detail Author Start: 12-06-2031 Urine microalbumin profile DTAP,TDAP,TD (2 - Td or Tdap) [facility] Start: 12-05-2026 HPV TESTING HPV TESTING [facility] Start: 12-05-2026 PAP TESTING PAP TESTING [facility] Start: 12-18-2022 Mammography MAMMOGRAM [facility] Start: 05-13-2022 DEPRESSION ASSESSMENT DEPRESSION ASSESSMENT [facility] Start: 01-11-2022 Influenza vaccination INFLUENZA (#1) [facility] Start: 01-01-2022 DEPRESSION ASSESSMENT DEPRESSION ASSESSMENT [facility] Start: 2019 COLOGUARD (FIT-DNA) COLOGUARD (FIT-DNA) [facility] Start: 2019 Colonoscopy COLONOSCOPY [facility] Start: 2019 COLORECTAL CANCER SCREENING COLORECTAL CANCER SCREENING [facility] Start: [address] COLONOGRAPHY [facility] Start: 2019 DIABETES SCREEN DIABETES SCREEN [facility] Start: 2019 FECAL OCCULT BLOOD FECAL OCCULT BLOOD [facility] Start: 2019 LIPID SCREEN LIPID SCREEN [facility] Start: 2019 SIGMOIDOSCOPY SIGMOIDOSCOPY [facility] Start: 02-25-1992 HEPATITIS C SCREENING HEPATITIS C SCREENING [facility] Start: 1986 Adult depression screening assessment DEPRESSION SCREENING [facility] Start: 1974 COVID-19 VACCINE (#1) COVID-19 VACCINE (#1) [facility] Start: 1974 HEPATITIS B (1 of 3 - 3-dose series) HEPATITIS B (1 of 3 - 3-dose series) [facility] Bacteria identified in Urine by Culture URINE CULTURE Microbiology Routine Dysuria 06/04/2022 10:12 AM [facility] Work Phone: BACTERIAL VAGINOSIS AMPLIFICATION BACTERIAL VAGINOSIS AMPLIFICATION Lab Routine Vaginal irritation 06/04/2022 10:12 AM [facility] Work Phone: ALONSO / TRICHOMONA S AMPLIFICATION ALONSO / TRICHOMONAS AMPLIFICATION Microbiology Routine Vaginal irritation 06/04/2022 10:12 AM [facility] Work Phone: [facility] Immunizations Immunization Date Immunization Notes Care Provider Mikaela solis 02-22-2022 influenza, injectabl e, quadrivalent, contains preservative Nurse [facility] 12-05-2021 tetanus toxoid, redu wilda diphtheria toxoid, and acellular pertussis vaccine, adsorbed Screen [facility] 03-11-2020 influenza, injectabl e, quadrivalent, contains preservative Screen [facility] Work Phone: 03-10-2019 influenza, injectabl e, quadrivalent, preservative free Screen [facility] 02-27-2018 influenza, injectabl e, quadrivalent, contains preservative Screen [facility] 03-01-2016 influenza, injectabl e, quadrivalent, contains preservative Screen [facility] Work Phone: 02-21-2015 influenza, injectabl e, quadrivalent, contains preservative Screen [facility] Work Phone: 03-05-2014 influenza, live, intranasal, quadrivalent Screen [facility] Work Phone: 03-06-2010 influenza virus vacc ine, unspecified formulation Screen [facility] Work Phone: Payers Date Payer Category Payer Unknown [id number] 2017 Unknown [id number] Social History Date Type Detail Facility Start: 06-18-2011 End: 07-18-2022 Tobacco smoking status NHIS Never smoked tobacco [facility] Start: 06-18-2011 End: 07-18-2022 Tobacco use and exposure Smokeless tobacco non-user [facility] Start: 12-05-2021 End: 07-18-2022 Alcohol intake Ex-drinker (finding) [facility] Start: 1975 Sex Assigned At Female [facility] Start: 11-25-2021 End: 02-07-2022 Exposure to SARS-CoV-2 (event) Not sure [facility] Start: 02-21-2022 History SDOH Alcohol Frequency 1 [facility] Start: 02-21-2022 History SDOH Alcohol Std Drinks 0 [facility] Start: 02-21-2022 History SDOH Social Connections Phone 5 [facility] Start: 02-21-2022 History SDOH Social Connections Jain 3 [facility] Start: 02-21-2022 History SDOH Social Connections Meetings 2 [facility] Start: 02-21-2022 History SDOH Physica l Activity DPW 6 [facility] Clinical Notes 01-17-2010 to 03-14-2023 Telephone Encounter - Jennifer Fields PRUNER - 08/08/2022 9:30 AM EDTTelephone Encounter - Daiana Fernandez PRUNER - 08/07/2022 11:46 AM EDTTelephone Encounter - Barb Monie RN - 08/06/2022 9:28 AM EDT Note Date & Type Note Facility 03-14-2023 Note HNO ID: [id number] Author: Reema Lyons APRN.COMMERCIAL KITCHEN SERVICE TECHNICIAN Service: ? Author Type: Nurse Practitioner Type: [...] Patient agreeable to treatment plan. Reema Lyons APRN.[facility] 08-08-2022 Miscellaneous Notes Patient scheduled Message left [...] Barb Lomax RN documented in this encounter [facility] 07-18-2022 Note HNO ID: [id number] Author: Garcia Owusu MD Service: ? Author [...] L1 SAB0 IAB0 Ectopic0 Multiple0 Live Births1 Elevator Conductor History LMP: 05/13/2022 (Exact Date), Having periods Age at Menarche: Age at First : Age at Menopause: Elevator Conductor History Comments: Sexual Activity: Yes; Male Contraception: [...] and irritation. We discussed options for that. Vdjz-dun-idqjypy suggestions given. Discussed with her option of [...] Level: 1 - N/A Garcia Owusu MD [facility] 07-18-2022 History of Presen t illness Narrative [...] L1 SAB0 IAB0 Ectopic0 Multiple0 Live Births1 Elevator Conductor History LMP: 05/13/2022 (Exact Date), Having periods Age at Menarche: Age at First : Age at Menopause: Elevator Conductor History Comments: Sexual Activity: Yes; Male Contraception: [...] and irritation. We discussed options for that. Jepx-xuu-yvasqlp suggestions given. Discussed with her option of [...] Garcia Owusu MD documented in this encounter [facility] 07-03-2022 Miscellaneous Notes schedule in person or virtual to discuss symptoms. Thanks. Garcia Owusu MD documented in this encounter [facility] 06-04-2022 Note HNO ID: [id number] Author: Afshan Fox APRN.COMMERCIAL KITCHEN SERVICE TECHNICIAN Service: ? Author Type: Nurse Practitioner Type: Progress Notes Filed: 06/04/2022 10:23 AM Note Text: Childbirth Educator offered: Patient declines. Vandana Hyman is a [...] external genitalia normal, normal Bartholin's glands, urethra, [place]'s glands, no vulvar lesions, no cervical lesions, [...] Medical Decision Making Level: 4 - Moderate [facility] 06-04-2022 History of Presen t illness Narrative Childbirth Educator offered: Patient declines. Vandana Hyman is a [...] external genitalia normal, normal Bartholin's glands, urethra, [place]'s glands, no vulvar lesions, no cervical lesions, [...] 4 - Moderate documented in this encounter [facility] 05-25-2022 Note HNO ID: [id number] Author: aGli Calhoun APRN.COMMERCIAL KITCHEN SERVICE TECHNICIAN Service: ? Author Type: Nurse Practitioner Type: Progress Notes Filed: 05/25/2022 9:19 AM Note Text: Telemedicine Visit - Distance Health Virtual Visit Note Patient seen on [employer] platform. Location of patient: [place] History of Present Illness Vandana Hyman is [...] of clear liquids - Advised on wipe gkybf-cc-tctr and always void after intercourse - Advised [...] would like to continue care with a [facility] Virtual Primary Care physician, please ask your provider to place a Establish Primary Care order. Use Shipwire to manage your care, wherever you are, 03/12, on your mobile device or computer. [employer] connects you to [employer] so you can access all your health information in one place and also schedule and request virtual appointments with primary care providers. [facility] 05-25-2022 Note HNO ID: [id number] Author: Gali Calhoun APRN.CNP Service: ? Author Type: Nurse Practitioner Type: Progress Notes Filed: 05/25/2022 7:37 AM Note Text: This is an Express Care eVisit note for Vandana Laneisit/Questionnaire reviewed The chief complaint for the visit - Patient presents with: Urinary Problem Recommendations/Treatment plan - See My Chart Message to patient Gali Calhoun APRN.CNP Total time spent on e-Visit: 3 minutes [facility] 05-25-2022 Instructions Gali Calhoun APRN.CNP - 05/25/2022 [...] treated. A physician, nurse practitioner or physician assistant statistician may treat with a short course of [...] if symptoms resolve. documented in this encounter [facility] 05-25-2022 History of Presen t illness Narrative Telemedicine Visit - Distance Health Virtual Visit Note Patient seen on [employer] platform. Location of patient: [place] History of Present Illness Vandana Hyman is [...] of clear liquids - Advised on wipe zosan-yw-duth and always void after intercourse - Advised [...] would like to continue care with a [facility] Virtual Primary Care physician, please ask your provider to place a Establish Primary Care order. Use [employer]wire to manage your care, wherever you are, 03/12, on your mobile device or computer. [employer] connects you to [employer] so you can access all your health information in one place and also schedule and request virtual appointments with primary care providers. documented in this encounter [facility] 05-25-2022 History of Presen t illness Narrative This is an Express Care eVisit note for Vandana Richard Prakash eVisit/Questionnaire reviewed The chief complaint for the visit - Patient presents with: Urinary Problem Recommendations/Treatment plan - See My Chart Message to patient Gali Calhoun APRN.CNP Total time spent on e-Visit: 3 minutes documented in this encounter [facility] 12-18-2021 Miscellaneous Notes December 18, 2021 PID: [id number] Vandana Stephenson Prakash [address] [place] [address] Dear Ms. Hyman, We are pleased to [...] report will be kept on file at [facility] as part of your permanent medical record and are available for your continuing care. Thank you for allowing us to help in meeting your health care needs. Sincerely, Dr. Hamilton Interpreting Radiologist [facility] (Normal over 40) documented in this encounter [facility] documented as of this encounter (statuses as of 12/19/2021) [facility]09-07-2010 History of Past illness Narrative* Problem Noted Date Resolved Date ADVANCED MATERNAL AGE:MULTIPARA [659.63] 010 06/18/2011 Supervision of normal first 07/26/2009 06/18/2011 documented as of this encounter (statuses as of 12/20/2021) [facility]09-07-2010 History of Past illness Narrative* Problem Noted Date Resolved Date ADVANCED MATERNAL AGE:MULTIPARA [659.63] 010 06/18/2011 Supervision of normal first 07/26/2009 06/18/2011 documented as of this encounter (statuses as of 02/22/2022) [address]07-2010 History of Past illness Narrative* Problem Noted Date Resolved Date ADVANCED MATERNAL AGE:MULTIPARA [659.63] 010 06/18/2011 Supervision of normal first 07/26/2009 06/18/2011 documented as of this encounter (statuses as of 05/25/2022) [address]07-2010 History of Past illness Narrative* Problem Noted Date Resolved Date ADVANCED MATERNAL AGE:MULTIPARA [659.63] 010 06/18/2011 Supervision of normal first 07/26/2009 06/18/2011 documented as of this encounter (statuses as of 05/25/2022) [address]07-2010 History of Past illness Narrative* Problem Noted Date Resolved Date ADVANCED MATERNAL AGE:MULTIPARA [659.63] 010 06/18/2011 Supervision of normal first 07/26/2009 06/18/2011 documented as of this encounter (statuses as of 06/04/2022) [address]07-2010 History of Past illness Narrative* Problem Noted Date Resolved Date ADVANCED MATERNAL AGE:MULTIPARA [659.63] 010 06/18/2011 Supervision of normal first 07/26/2009 06/18/2011 documented as of this encounter (statuses as of 07/03/2022) [address]07-2010 History of Past illness Narrative* Problem Noted Date Resolved Date ADVANCED MATERNAL AGE:MULTIPARA [659.63] 010 06/18/2011 Supervision of normal first 07/26/2009 06/18/2011 documented as of this encounter (statuses as of 07/18/2022) [address]-2010 History of Past illness Narrative* Problem Noted Date Resolved Date ADVANCED MATERNAL AGE:MULTIPARA [659.63] 010 06/18/2011 Supervision of normal first 07/26/2009 06/18/2011 documented as of this encounter (statuses as of 08/08/2022) [facility] note* Diagnosis Encounter for gynecological examination (general) (routine) without abnormal findings Encounter for screening mammogram for breast cancer documented in this encounter [facility] note* Diagnosis Encounter for immunization- Primary Need for other specified prophylactic vaccination against single bacterial disease documented in this encounter [facility] note* Diagnosis Treatment not available- Primary Procedure not carried out for other reasons documented in this encounter [facility] note* Diagnosis Acute cystitis without hematuria- Primary Acute cystitis documented in this encounter [facility] note* Diagnosis Vaginal irritation- Primary Unspecified noninflammatory disorder of vagina Dysuria documented in this encounter [facility] note* Diagnosis Perimenopausal- Primary Symptomatic menopausal or female climacteric states documented in this encounter [facility] for referral (narrative)* Diagnostic Procedure Only (Routine) - Closed Specialty Diagnoses / Procedures Referred By Isaak young Referred To Contact [facility] Diagnoses Encounter for gynecological examination (general) (routine) without abnormal findings Encounter for screening mammogram for breast cancer Procedures SULEMAN SCREENING W DANIEL SCREENING DIGITAL BREAST TOMOSYNTHESIS BI SCREENING MAMMOGRAPHY BI 2-VIEW BREAST INC Garcia Dotson MD [address] [place] [address] [place] [address] Referral ID Status Reason Start Date Expiration Date V isits Requested Visits Authorized [id number] Closed Auto-Generate d Referral 12/18/2021 05/12/2022 1 1 [facility] for visit Narrative* Diagnostic Procedure Only (Routine) - Closed Specialty Diagnoses / Procedures Referred By Isaak young Referred To Contact [facility] Diagnoses Encounter for gynecological examination (general) (routine) without abnormal findings Encounter for screening mammogram for breast cancer Procedures SULEMAN SCREENING W DANIEL SCREENING DIGITAL BREAST TOMOSYNTHESIS BI SCREENING MAMMOGRAPHY BI 2-VIEW BREAST INC Garcia Dotson MD [address] [place] [address] Br [employer] [address] [place] [address] Referral ID Status Reason Start Date Expiration Date V isits Requested Visits Authorized [id number] Closed Auto-Generate d Referral 12/18/2021 05/12/2022 1 1 [facility] Summary Purpose Family History No Family [...] or prosecute any alcohol or drug abuse patient.[facility] the event this information is protected by the Federal Confidentiality of Alcohol and Drug Abuse Patient Records regulations: The Federal rules restrict any use of the information to criminally investigate or prosecute any alcohol or drug abuse patient.[facility] the event this information is protected by the Federal Confidentiality of Alcohol and Drug Abuse Patient Records regulations: The Federal rules restrict any use of the information to criminally investigate or prosecute any alcohol or drug abuse patient.[facility] the event this information is protected by the Federal Confidentiality of Alcohol and Drug Abuse Patient Records regulations: The Federal rules restrict any use of the information to criminally investigate or prosecute any alcohol or drug abuse patient.[facility] the event this information is protected by the Federal Confidentiality of Alcohol and Drug Abuse Patient Records regulations: The Federal rules restrict any use of the information to criminally investigate or prosecute any alcohol or drug abuse patient.[facility] the event this information is protected by the Federal Confidentiality of Alcohol and Drug Abuse Patient Records regulations: The Federal rules restrict any use of the information to criminally investigate or prosecute any alcohol or drug abuse patient.[facility] the event this information is protected by the Federal Confidentiality of Alcohol and Drug Abuse Patient Records regulations: The Federal rules restrict any use of the information to criminally investigate or prosecute any alcohol or drug abuse patient.[facility] the event this information is protected by the Federal Confidentiality of Alcohol and Drug Abuse Patient Records regulations: The Federal rules restrict any use of the information to criminally investigate or prosecute any alcohol or drug abuse patient.[facility] the event this information is protected by the Federal Confidentiality of Alcohol and Drug Abuse Patient Records regulations: The Federal rules restrict any use of the information to criminally investigate or prosecute any alcohol or drug abuse patient.[facility] Care Teams (unrecognized sec tion and content) Pathology Technologist Relationship Specialty Start Date End Date Bernie Alcantara, COMMERCIAL KITCHEN SERVICE TECHNICIAN [address] [facility] [address] [place] [address] PCP - General Internal Medicine 04/05/17 Pathology Technologist Relationship Specialty Start Date End Date Bernie Alcantara, COMMERCIAL KITCHEN SERVICE TECHNICIAN [address] [facility] [address] [place] [address] PCP - General Internal Medicine 04/05/17 Pathology Technologist Relationship Specialty Start Date End Date Bernie Alcantara, COMMERCIAL KITCHEN SERVICE TECHNICIAN [address] [facility] [address] [place] [address] PCP - General Internal Medicine 04/05/17 Pathology Technologist Relationship Specialty Start Date End Date Bernie Alcantara, COMMERCIAL KITCHEN SERVICE TECHNICIAN [address] [facility] [address] [place] [address] PCP - General Internal Medicine 04/05/17 Pathology Technologist Relationship Specialty Start Date End Date Bernie Alcantara, COMMERCIAL KITCHEN SERVICE TECHNICIAN [address] [facility] [address] [place] [address] PCP - General Internal Medicine 04/05/17 Pathology Technologist Relationship Specialty Start Date End Date Bernie Alcantara, COMMERCIAL KITCHEN SERVICE TECHNICIAN [address] [facility] [address] [place] [address] PCP - General Internal Medicine 04/05/17 Pathology Technologist Relationship Specialty Start Date End Date Bernie Alcantara, COMMERCIAL KITCHEN SERVICE TECHNICIAN [address] [facility] [address] [place] [address] PCP - General Internal Medicine 04/05/17 Pathology Technologist Relationship Specialty Start Date End Date Bernie Alcantara, COMMERCIAL KITCHEN SERVICE TECHNICIAN [address] [facility] [address] [place] [address] PCP - General Internal Medicine 04/05/17 Reason for Visit (unrecogniz ed section and content) Reason Comments Vaginal Problem Specialty Diagnoses / Procedures Referred By Contac t Referred To Contact Gynecology / BLENDING OPERATOR Diagnoses Vaginal infection vag Infection Procedures OFFICE/OUTPATIENT ESTABLISHED HIGH MDM 40-54 MIN EST WHI PATIENT Self Afshan Fox APRN.COMMERCIAL KITCHEN SERVICE TECHNICIAN [address] [place] [address] Referral ID Status Reason Start Date Expiration Date Visits Re quested Visits Authorized [id number] Closed 06/04/2022 05/12/2023 1 1 Reason Comments Discussion Specialty Diagnoses / Procedures Referred By Contac t Referred To Contact BLENDING OPERATOR Diagnoses Encounter for gynecological examination pre menopause Procedures OFFICE/OUTPATIENT ESTABLISHED HIGH MDM 40-54 MIN EST WHI PATIENT Self Garcia Owusu MD [address] [place] [address] Referral ID Status Reason Start Date Expiration Date Visits Re quested Visits Authorized [id number] Closed 07/18/2022 05/12/2023 1 1 Reason Comments [...] BE BASED ON THE PRIMARY CLINICAL RECORDS. [facility] provides no warranty or guarantee of the accuracy or completeness of information in this document.
== END | disposition home or self-care (01) ==
LOC: OPUS 09:16
PROVIDERS: PCP Internal Medicine; Referring Provider Advanced Practice Midwife; Visit Provider Advanced Practice Midwife
DX: R92.8 Other abnormal and inconclusive findings on diagnostic imaging of breast (principal)
CPT/HCPCS: 76642

== ENCOUNTER → 2024-07-17 | Outpatient (CLI) | payer OTHER, SELFPAY ==
--- NOTE | 2024-07-17 12:45 | BI_ITS ---
PROCEDURE: SCRN MAMM (CAD)W/DANIEL BILAT REASON FOR EXAM: F, Age 49 y/o, no family history. TECHNIQUE: Bilateral screening digital breast tomosynthesis with 2D and 3D images. Computer aided detection. COMPARISON: Prior exam(s) dating back to July 04, 2023. FINDINGS: The breasts are extremely dense which lowers the sensitivity of mammography. Stable examination. Stable small benign-appearing bilateral axillary lymph nodes. No suspicious masses, areas of developing architectural distortion, or suspicious calcifications. BI/SCRN MAMM (CAD)W/DANIEL BILAT IMPRESSION: BI-RADS 2: BENIGN. RECOMMEND ANNUAL MAMMOGRAPHIC SCREENING. Follow-up code: Routine Follow-up The patient will be notified of the results by letter. Reading Location: [id number]
== END | disposition home or self-care (01) ==
LOC: OPBI 12:30
PROVIDERS: PCP Internal Medicine; Referring Provider Obstetrics & Gynecology; Visit Provider Obstetrics & Gynecology
DX: Z12.31 Encounter for screening mammogram for malignant neoplasm of breast (principal)
CPT/HCPCS: 77063; 77067

== ENCOUNTER → 2024-09-04 | Outpatient (CLI) | payer OTHER, SELFPAY ==
[2024-09-04 10:33] LABS: Cholesterol 221 mg/dL (<=200); Follicle Stimulating Hormone 27.4 mIU/mL; Glucose 86 mg/dL (70-99); High Density Lipoprotein 82 mg/dL; Low Density Lipoprotein Calc. 126 mg/dL; Luteinizing Hormone 51.9 mIU/mL; Triglycerides 65 mg/dL; Very Low Density Lipoprotein 13 mg/dL (5-40); Vitamin D,25 Hydroxy 47.2 ng/mL (30-100); cholesterol:hdl ratio screen 2.69
== END | disposition home or self-care (01) ==
LOC: LAB 08:43
PROVIDERS: PCP Internal Medicine; Referring Provider Obstetrics & Gynecology; Visit Provider Obstetrics & Gynecology
DX: Z13.1 Encounter for screening for diabetes mellitus (principal); Z13.220 Encounter for screening for lipoid disorders; Z13.29 Encounter for screening for other suspected endocrine disorder; N95.1 Menopausal and female climacteric states
CPT/HCPCS: 36415; 80061; 82306; 82670; 82947; 83001; 83002; 84443